=== PATIENT | female | born 1955 | race Caucasian/White ===

== ENCOUNTER → 2021-08-29 12:45 | Outpatient (BNVA) | payer OTHER, SELFPAY | PROVIDERS: Visit Provider Nurse Practitioner Family | DX: M25.561 Pain in right knee (principal) | CPT/HCPCS: 73562 ==

== ENCOUNTER 2021-10-05 07:01 | Outpatient (CLI) | payer OTHER, SELFPAY ==
--- NOTE | 2021-10-05 07:15 | MR_ITS ---
WS: [id number] MRI RIGHT KNEE NONCONTRAST TECHNIQUE: Axial PD, coronal PD fat sat, coronal PD, sagittal PD, and sagittal PD fat-sat images obta ined. CLINICAL INFORMATION: continued knee pain after torque injury 4 weeks prior COMPARISON: None. FINDINGS: Distal quadriceps and patella tendons are intact. Hypertrophic patella. Partial intrasubstance tear i nvolving the distal ACL at the tibial insertion. Associated T2 signal abnormality. Intrasubstance mike ma. ACL otherwise appears intact. Normal PCL. Prepatellar soft tissue edema. Moderate suprapatellar effusion. Patella tendon tendinosis at the distal insertion. Advanced tricompartmental arthritis. Small amount of subchondral cystic change and edema involving th e medial tibial plateau and tibial spines. Mild chondromalacia patella. Normal medial and lateral patellar retinaculum. High-grade partial tear at the LCL proximal origin at the femoral condyle. LCL is otherwise grossly intact. Chronic thinning of the medial and lateral meniscus. Chronic intrasubstance signal abnormality involving the posterior horn medial meniscus. Chronic peripheral extrusion of the medial meniscus. Small radial tear involvi ng the anterior horn lateral meniscus. Edema in Hoffa's fat pad. Popliteus tendon appears normal. MR/MR knee RT wo con* [id number] IMPRESSION: 1. Partial intrasubstance tear involving the distal ACL at the tibial insertio n. ACL is grossly otherwise intact. Normal PCL. 2. Advanced tricompartmental arthritis subchondral cystic change involving the medial tibial plateau and tibial spines. 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 3. Chronic thinning of the medial and lateral meniscus. 4. Radial tear involving the anterior horn lateral meniscus. 5. Moderate suprapatellar effusion. Prepatellar soft tissue edema. 6. High-grade intrasubstance ligamentous tear at the LCL origin femoral condyl e. LCL otherwise appears intact. Normal MCL. 7. Mild chondral malacia patella 8. Tendinosis of the patella tendon insertion. Outbridge grading:
== END 2021-10-05 07:02 | disposition home or self-care (01) ==
PROVIDERS: Visit Provider Orthopaedic Surgery
DX: S83.8X1A Sprain of other specified parts of right knee, initial encounter (principal); S83.511A Sprain of anterior cruciate ligament of right knee, initial encounter; X58.XXXA Exposure to other specified factors, initial encounter; M13.861 Other specified arthritis, right knee; S83.281A Other tear of lateral meniscus, current injury, right knee, initial encounter; M25.461 Effusion, right knee; R60.0 Localized edema; M22.41 Chondromalacia patellae, right knee
CPT/HCPCS: 73721

== ENCOUNTER 2021-10-20 11:59 | Day surgery (SDC) | payer OTHER, SELFPAY ==
[2021-10-19 14:47] VITALS: BMI 33.2
[2021-10-20] VITALS (8 sets, daily range): BP systolic 111–150; BP diastolic 71–91; PULSE 68–85; RESP 14–18; TEMP 36.3–36.8; O2SAT 96–99
--- NOTE | 2021-10-20 12:36 | ANES.PREANE2 ---
Pre-Anesthetic Assessment Height/Weight: Height 1.7 m Weight 96.162 kg Temp Pulse Resp BP Pulse Ox 97.3 F L 81 16 150/91 97 10/20/21 12:23 10/20/21 12:23 10/20/21 12:23 10/20/21 12:23 10/20/21 12:23 Preop Diagnosis: meniscal tear right knee Operation Date: 10/20/21 14:00 Proposed Procedures p Right knee scope with root repair 42721/[id number]/m94.261(Right) - Anshul Muir MD Familial anesthetic complications: Patient's brother had reaction. I spoke with patient's brother on the phone. He had bradycardia pre op, after start of anesthesia his blood pressure dropped, and he became cold he was never told he had an allergy to anesthesia or to warn family of anesthetic reactions. Patient's brother has had other surgeries w/o complications. Patient has hx of PONV Was Beta Nneka taken within 24 hours: N/A Was Clonidine taken within 24 hours: N/A Last intake: Intake Last Liquid Date 10/19/21 Last Liquid Time 18:00 Last Solid Date 10/19/21 Last Solid Time 18:00 Social No alcohol and No tobacco Exam alert, oriented x 3, clear to auscultation bilaterally and regular rate & rhythm Airway Submandibular: within normal limits Cervical ROM: within normal limits Mallampati: Class II Dentition: chipped Pulmonary None reported CV/HEM Hypertension Hepatic None reported GI Gastroesophageal Reflux Disease (Well controlled ) Musc/skel Osteoarthritis/DJD Neuropsych None reported Anesthetic Plan ASA status: 2 Anesthesia: Anesthesia Evaluation and General Other: We discussed risk and benefits of general anesthesia including PONV, sore throat (sometimes severe), corneal abrasion, positioning and peripheral nerve injuries, life threatening allergic reaction, post operative ICU admission requiring prolonged intubation, stroke, heart attack, , and rare incidences of recall. Patient consents to proceed with general anesthesia. Plan pre op scopalamine and diphenhydramine for PONV PPx in addition to dexamethasone and ondansetron Risk of > 500 ml blood loss (7ml/kg in children): No Medications/Allergies Home Medications Medication Instructions Recorded Confirmed Last Taken Type amlodipine 5 mg tablet 5 mg PO DAILY 08/29/21 10/19/21 Unknown History atorvastatin 10 mg tablet 10 mg PO DAILY 08/29/21 10/19/21 Unknown History fluoxetine 20 mg tablet 20 mg PO DAILY 08/29/21 10/19/21 Unknown History losartan 100 1 tab PO DAILY 08/29/21 10/19/21 Unknown History mg-hydrochlorothiazide 12.5 mg tablet pantoprazole 40 mg tablet,delayed 40 mg PO DAILY 08/29/21 10/19/21 Unknown History release multivitamin (Multiple Vitamins) 1 tab PO DAILY 09/01/21 10/19/21 Unknown History Allergies Allergy/AdvReac Type Severity Reaction Status Date / Time codeine Allergy ALGY-Anaphy Verified 09/01/21 08:05 laxis Iodinated Contrast Media Allergy ALGY-Anaphy Verified 09/01/21 08:05 laxis [facility] Anesthesia Social History Smoking and tobacco status: never smoked Alcohol intake: never Data Anesthesia Cardiac Studies: No Data to Display
[2021-10-20] MEDS: sodium chloride 0.9% 1,000 ML 30 ML IV (12:40)
[2021-10-20] MEDS: scopolamine 1.5 Patch 1 PATCH TRANSDERMA (13:01)
[2021-10-20] MEDS: diphenhydrAMINE 50 mg/mL SDV 1mL 12.5 MG IVP (13:05)
--- NOTE | 2021-10-20 13:06 | PC.NURSE ---
Family history anesthesia reaction: When asked patient question regarding malignant hyperthermia, patient stated she was not sure what it was called, but her brother did have severe reaction to anesthesia previously. Patient at first stated that after given dose of anesthesia, she thought her brother experienced low blood pressure, low heart rate, and a fever. However, she could not remember the details exactly. This nurse informed Dr. Cervantes of possible reaction. Dr. Cervantes then came to patient to investigate further, patient then called her brother to find out exactly the type of reaction that occurred. Dr. Cervantes did speak with him on the phone. He expressed that he had a drop in blood pressure and temperature and always has bradycardia.
--- NOTE | 2021-10-20 13:39 | W.PM.OPSUD ---
Surgery/Procedure H&P Update DATE OF PROCEDURE: October 20, 2021 DATE H&P PERFORMED: 10/11/21 H&P UPDATE INFORMATION: I have reviewed H&P completed within last 30 days PREOP DIAGNOSIS: meniscal tear right knee PLANNED PROCEDURE: Operation Date: 10/20/21 14:00 Proposed Procedures p Right knee scope with root repair 37666/[id number]/m94.261(Right) - Anshul Muir MD
[2021-10-20] MEDS: morphine 4 mg/mL SDV 1 mL 8 MG XX (14:29)
--- NOTE | 2021-10-20 16:14 | P.OP_ITS ---
Operative Report Date of procedure: October 20, 2021 Pre-op diagnosis: Preop Diagnosis meniscal tear right knee Post-op diagnosis: same Post-op diagnosis: Meniscal root tear right knee, chondromalacia medial femoral condyle Procedure done: Arthroscopic repair right medial meniscal root Implants: [employer] Endobutton x2 Pathology: none sent Surgeon: Anshul Muir Anesthesia: General Estimated blood loss (mL): 20 Tourniquet time (min): 63 Complications: None Findings: The patient had a complete avulsion of her meniscal root posteriorly from the intercondylar eminence. She had fibrillation fraying and thinning of the cartilage over the medial femoral condyle thought involved perhaps 25% of the cartilaginous thickness. No point was exposed subchondral bone identified Condition: stable Disposition: PACU Brief History: Ms. Andrade is a 66-year-old female who developed acute pain and a pop in her knee after stepping off a sidewalk in August. She had persistent pain and swelling. An MRI was obtained showing some early degenerative changes the medial compartment but also a suspected meniscal root tear. She was taken to the operating room for arthroscopic evaluation and joint and possible root repair Procedure: Lexi was taken to the operating room and given a general anesthesia. She was given 2 g of Ancef. She was prepped and draped in the supine position with a tourniquet on the her knee. The kneewas infiltrated with 30 cc of quarter percent Marcaine with 8 mg of morphine. A timeout was performed. The knee was entered through a standard inferior medial and inferior lateral portal. The medial portal was placed close to the patellar tendon to allow better potential access to the meniscal root. The diagnostic portion arthroscopy was performed. The lateral compartment was essentially pristine with no meniscal tearing or chondromalacia. she had minimal softening and small fissures of her central patella but no significant patellar cartilage loss and no trochlear cartilage loss. Her medial compartment was remarkable for fibrillation and softening over the entirety of the weightbearing aspect the medial femoral condyle but no point was exposed subchondral bone identified. Light debridement of the medial femoral condyle was accomplished with the [employer]hew Werewolf probe. Her meniscus was probed and the posterior root tear noted. As the patient was asymptomatic prior to the August injury and chondroma lacia was estimated to be a high-grade 2 a decision was made to proceed with root repair. Small curette was used to debride the meniscal root attachment site Initially working through the medial portal a [employer]hew FirstPass mini suture passer was used to shuttle a looped Ultrabraid through the torn end of the meniscal root. The loop then was then passed back out through the medial portal and secured control in the end of the meniscus with a luggage tag type stitch. Traction could then be placed on this allowing better control of the root and a second suture was passed in identical fashion. Working through the medial portal the root repair guide was centered at the meniscal root attachment just medial to the tibial spine. A's small 2cm anterior medial incision was made for the cannula. The root repair cannula was passed into the joint. Through this cannula a looped nylon suture was passed. That suture was brought through the medial portal and used to shuttle one of the suture pairs of through the tunnel. It was thought that repair will be more stable if the second suture could be brought through a more posterior and lateral tunnel. A second more anterior lateral incision was made for the second tunnel. And a guide was used to pass a second cannula into a more lateral and posterior position. The guide was used to pass a second guidepin from the more lateral tibia exiting more lateral against the medial aspect of the tibial spine and in identical fashion the second suture pair passed through the suture tunnel. Each suture was tied over a Endobutton securing the meniscal root over the tunnels and debrided root footprint attachment site. The scope was reintroduced into the joint and the repair probed and found to be stable. The knee was irrigated with saline. The to tunnel incisions over the medial and lateral tibia were closed with deep 2-0 Vicryl and interrupted 3-0 Prolene. Arthroscopy portalswere closed with 3-0 Prolene.
[2021-10-20] MEDS: ondansetron 2 mg/ML SDV 2 mL 4 MG IVP (16:28)
[2021-10-20] MEDS: ketorolac 30 mg/mL INJ 15 MG IVP (16:43)
[2021-10-20] MEDS: HYDROcodone-acetaminophen 7.5-325 mg Tablet 1 TAB PO (16:50)
--- NOTE | 2021-10-20 16:54 | ANE.PACU2 ---
Inpatient post-anesthesia follow up: Airway intact: Yes Vital signs: Temperature 97.3 F Pulse Rate 85 Respiratory Rate 18 Blood Pressure 117/80 Pulse Oximetry 96 Oxygen Delivery Me thod Room Air Oxygen Flow Rate 6 Fraction of Inspir ed Oxygen Hydration adequate: Yes Nausea and vomiting: No Pain level: 5 Mental status: Baseline
== END 2021-10-20 17:40 | disposition home or self-care (01) ==
PROVIDERS: Visit Provider Orthopaedic Surgery
PROC: (CPT 29870; principal; 2021-10-20 14:00)
DX: S83.241A Other tear of medial meniscus, current injury, right knee, initial encounter (principal); W19.XXXA Unspecified fall, initial encounter; K21.9 Gastro-esophageal reflux disease without esophagitis; M19.90 Unspecified osteoarthritis, unspecified site
CPT/HCPCS: 29881; J0690; J1200; J1885; J2270; J2370; J2405; J2704; J3010; J3490; J7030

== ENCOUNTER 2021-11-04 06:00 | Outpatient (RCR) | payer OTHER, SELFPAY | END 2021-11-22 23:59 | disposition home or self-care (01) | LOC: TPT 06:00 | PROVIDERS: Referring Provider Orthopaedic Surgery; Visit Provider Orthopaedic Surgery | DX: S83.8X1D Sprain of other specified parts of right knee, subsequent encounter (principal); X58.XXXD Exposure to other specified factors, subsequent encounter | CPT/HCPCS: 97032; 97110; 97140; 97163 ==

== ENCOUNTER 2021-11-23 06:00 | Outpatient (RCR) | payer OTHER, SELFPAY | END 2021-12-22 23:59 | disposition home or self-care (01) | LOC: TPT 06:00 | PROVIDERS: Referring Provider Orthopaedic Surgery; Visit Provider Orthopaedic Surgery | DX: Z47.89 Encounter for other orthopedic aftercare (principal); Z98.890 Other specified postprocedural states | CPT/HCPCS: 97032; 97110; 97116 ==

== ENCOUNTER 2021-11-27 17:23 | Emergency (ER) | payer OTHER, SELFPAY ==
[2021-11-27 17:34] VITALS: BP 138/83; PULSE 89; RESP 16; TEMP 37; O2SAT 96; BMI 32.2
--- NOTE | 2021-11-27 17:54 | ED_ITS ---
HPI - General Adult General: Chief complaint: Extremity Injury, Lower Stated complaint: Post Surg, R Leg, Turning red, Toes blue, Pain Time Seen by Provider: 11/27/21 17:42 History of Present Illness: Patient is a 66-year-old female who recently underwent right-sided hip hip surgery presenting to the emergency room with complaints of 2 days of right-sided leg swelling. Patient tells me she has been immoblized in bed at home. Patient denies any chest pain, short of breath, palpitation, and lightheadedness. Patient says she has been having progressively swelling and pain without any trauma or injuries. She denies any fever or chills, cough, runny nose, sore throat, fever or chill. Patient is not on anticoagulation Onset:2 days ago Duration:2 days Location:home Severity:moderate Associated symptoms: Deny chest pain, dyspnea, nausea, rash, palpitations or vomiting Review of Systems Const: Denies: fever(s) or chills Eyes: Denies: change in vision ENMT: Denies: mouth pain Card: Denies: chest pain or palpitations Resp: Denies: dyspnea or non-productive cough GI: Denies: abdominal pain, nausea, vomiting or diarrhea : Denies: dysuria Musc: Reports: extremity pain (+R leg pain and swelling) Skin/Breast: Denies: rash or new lesions Neuro: Denies: weakness in extremities Psych: Reports: other (Normal mood) Jamar/Lymph: Denies: easy bruising PFSH ED PFSH: Surgical History Post-operative state Social History Smoking and tobacco status: never smoked Alcohol intake: never Physical Exam Const: COMMON NORMALS: alert HENMT: COMMON NORMALS: atraumatic HEAD & SCALP: atraumatic MOUTH: moist mucous membranes not abnormal Eye: COMMON NORMALS: EOMs intact bilaterally and conjunctivae normal CONJUNCTIVA: Yes conjunctivae normal Neck/C-Spine: COMMON NORMALS: full ROM and supple Resp: COMMON NORMALS: normal respiratory effort and clear to auscultation bilaterally AUSCULTATION: clear to auscultation bilaterally Cardio: COMMON NORMALS: regular rate RATE: regular rate GI: COMMON NORMALS: Soft to palpation and non-tender PALPATION: Yes Soft to palpation Extremity: COMMON NORMALS: full ROM NARRATIVE EXTREMITY EXAM: +R leg swelling, + mild right thigh and right tib/fib compartment tightness, 3+ RLE edema, +R tib-fib/thigh tenderness to palpation, 2+ radial pulses in the right lower extremity, cap refill 3 seconds Neuro: SENSORIUM/ORIENTATION: Yes alert MOTOR EXAM: No Abnormal motor strength present and Other motor observations present (no focal motor deficits) Psych: COMMON NORMALS: speech normal SPEECH: Yes normal speech MOOD & AFFECT: Yes euthymic mood Course Vital Signs: Vital signs: Vital Signs Temperature 97.9 F 11/27/21 18:03 Pulse Rate 86 11/27/21 18:03 Respiratory Rate 18 11/27/21 18:03 Blood Pressure 136/88 11/27/21 18:03 Pulse Oximetry 96 11/27/21 18:03 MDM - General Adult Medical Decision Making 66-year-old female with a history of recent hip surgery currently immobilized in bed presenting to the emergency room with 2 days of progressive right leg swelling and pain. On physical exam, patient has 3+ edema of the right lower extremity, mild tight compartment of the thigh and tib-fib and cap refill of 3 seconds. Neurovascular exam intact. Ultrasound showed extensive thrombosis of the right femoral vein. Discussed case with radiologist who thinks that there may be propagation of thrombus into the iliac vein system. Radiology recommend CT venogram or MR venogram and in case patient has a iliocaval DVT, they may be amenable to mechanical thrombectomy. Patient has an anaphylactic reaction to iodine contrast. I have discussed case with Shea from who tells me that they cannot perform MR venogram of the abdomen pelvis. Patient received 1mg/kg of lovenox in our ED. Case was discussed with Dr. Fontenot at [facility] who agreed with the transfer [facility] for MR venogram for evaluation of possible iliac and iliocaval DVT/ DVT in transit. Disposition: Transfer to outside hospital Lab Data Radiology Impressions Venous Duplex 11/27/21 18:12 IMPRESSION: Right lower extremity femoral vein deep venous system thrombosis. Proximal propagation of thrombus into the iliac vein system cannot be excluded. ADDENDUM: 11/27/211936 THIS REPORT CONTAINS FINDINGS THAT MAY BE CRITICAL TO PATIENT CARE. The findings were verbally communicated via telephone conference with REJI KLINE at 7:35 PM CDT on 11/27/2021. The findings were acknowledged and understood. Imaging Data Other Imaging: Radiologist's impression: [address] [place] [address] Ultrasound Report Signed with Radha Patient: Lexi Andrade Unit #: [id number] : 1955 Age/Sex: 66 / F ADM Date: 11/27/21 Loc: ER Room/Bed: Attending Dr: Ordering Provider/Ordering MD: Reji Kline MD Date of Service: 11/27/21 Procedure(s): [place] [address] Accession Number(s): [id number] Report Number: [id number] ADDENDUM US/[place] [id number] THIS REPORT CONTAINS FINDINGS THAT MAY BE CRITICAL TO PATIENT CARE. The findings were verbally communicated via telephone conference with REJI KLINE at 7:35 PM CDT on 11/27/2021. The findings were acknowledged and understood. ? Addendum Dictated By: ?Max Reddy Addendum Signed By: ?Max Reddy Signed Date/Time: 11/27/211936 Addendum Cosigned By: ? PROCEDURE INFORMATION: Exam: US Duplex Right Lower Extremity Veins, Limited Exam date and time: 11/27/2021 6:30 PM Age: 66 years old Clinical indication: Pain; Edema, localized and swelling (edema) of limb; Lower extremity, right; Leg, upper; Additional info: Leg swelling, recent surgery TECHNIQUE: Imaging protocol: Real-time Duplex ultrasound of the Right Lower Extremity with 2-D mccray scale, color Doppler flow and spectral waveform analysis with image documentation. Limited exam was focused on the right lower extremity veins. COMPARISON: MR knee RT wo con* [id number] 10/05/2021 7:33 AM FINDINGS: Right deep veins: Occlusive thrombus in the right common femoral vein. Right superficial femoral vein throughout thigh demonstrates occlusive thrombus. Right popliteal vein is patent. Calf veins are patent. Right superficial veins: Occlusive thrombus in the right saphenous femoral junction. Soft tissues: Soft tissue edema. US/[place] [id number] IMPRESSION: Right lower extremity femoral vein deep venous system thrombosis.? Proximal propagation of thrombus into the iliac vein system cannot be excluded. ? 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
[2021-11-27 18:03] VITALS: BP 136/88; PULSE 86; RESP 18; TEMP 36.6; O2SAT 96
--- NOTE | 2021-11-27 18:12 | USR_ITS ---
PROCEDURE INFORMATION: Exam: US Duplex Right Lower Extremity Veins, Limited Exam date and time: 11/27/2021 6:30 PM Age: 66 years old Clinical indication: Pain; Edema, localized and swelling (edema) of limb; Lower extremity, right; Leg, upper; Additional info: Leg swelling, recent surgery TECHNIQUE: Imaging protocol: Real-time Duplex ultrasound of the Right Lower Extremity with 2-D mccray scale, color Doppler flow and spectral waveform analysis with image documentation. Limited exam was focused on the right lower extremity veins. COMPARISON: MR knee RT wo con* [id number] 10/05/2021 7:33 AM FINDINGS: Right deep veins: Occlusive thrombus in the right common femoral vein. Right superficial femoral vein throughout thigh demonstrates occlusive thrombus. Right popliteal vein is patent. Calf veins are patent. Right superficial veins: Occlusive thrombus in the right saphenous femoral junction. Soft tissues: Soft tissue edema. US/[place] [id number] IMPRESSION: Right lower extremity femoral vein deep venous system thrombosis. Proximal propagation of thrombus into the iliac vein system cannot be excluded.
[2021-11-27 19:45] VITALS: BP 134/80; PULSE 83; RESP 17; O2SAT 97
[2021-11-27 20:45] VITALS: BP 119/82; PULSE 85; RESP 16; O2SAT 98
[2021-11-27 20:55] LABS: Basophils # 0.1 10^3/uL (0.0-0.1); Basophils % 0.4 %; Eosinophils # 0.2 10^3/uL (0.0-0.8); Eosinophils % 1.1 %; Hemoglobin 13.6 g/dL (11.5-15.3); Lymphocytes # 2.7 10^3/uL (0.8-4.8); Lymphocytes % 20.2 %; Mean Corpuscular HGB Conc 32.4 g/dL (30.0-36.0); Mean Corpuscular Hemoglobin 29.1 pg (28.0-34.0); Mean Corpuscular Volume 89.9 fl (81-99); Mean Platelet Volume 9.6 fL (7.4-10.4); Monocytes # 1.1 10^3/uL (0.2-0.9); Monocytes % 8.1 %; Neutrophils # 9.36 10^3/uL (1.8-7.7); Neutrophils % 69.8 %; Nucleated Red Blood Cells % 0 %; Platelet Count 276 10^3/cmm (130-400); Red Blood Count 4.67 10^6/uL (4.1-5.3); Red Cell Distribution Width 13.4 % (12.1-15.1); White Blood Count 13.4 10^3/uL (4.0-10.0)
[2021-11-27] MEDS: enoxaparin 100 mg/mL Syringe 90 MG SUBCUT (20:55)
[2021-11-27 21:12] LABS: Anion Gap 15.3 (5-19); Blood Urea Nitrogen 22 mg/dL (8-23); Calcium 9.4 mg/dL (8.5-10.5); Carbon Dioxide 26 mmol/L (22-29); Chloride 101 mmol/L (98-107); Glomerular Filtration Rate 55.8 mL/min (90-130); Glucose 114 mg/dL (65-115); Osmolality Calculated 292 mOsm/kg (285-295); Potassium 3.3 mmol/L (3.5-5.1); Sodium 139 mmol/L (136-145)
[2021-11-27 21:13] LABS: Creatinine Clr Calc Pharmacy 66.6959
[2021-11-27 21:36] VITALS: BP 119/82; PULSE 85; RESP 16; O2SAT 98
== END 2021-11-27 21:39 ==
PROVIDERS: Emergency Provider Emergency Medicine
DX: I82.411 Acute embolism and thrombosis of right femoral vein (principal); R60.9 Edema, unspecified; Z98.890 Other specified postprocedural states
CPT/HCPCS: 80048; 85025; 93971; 96372; 99283; 99285; J1650

== ENCOUNTER 2021-12-23 06:00 | Outpatient (RCR) | payer OTHER, SELFPAY | END 2022-01-22 23:59 | disposition home or self-care (01) | LOC: TPT 06:00 | PROVIDERS: Referring Provider Orthopaedic Surgery; Visit Provider Orthopaedic Surgery | DX: S83.241D Other tear of medial meniscus, current injury, right knee, subsequent encounter (principal); X58.XXXD Exposure to other specified factors, subsequent encounter | CPT/HCPCS: 97110; 97164 ==

== ENCOUNTER → 2022-07-18 13:43 | Outpatient (BNVA) | payer MEDICARE, OTHER, SELFPAY | PROVIDERS: PCP Family Medicine; Visit Provider Podiatrist Foot & Ankle Surgery | DX: M79.671 Pain in right foot (principal); M79.672 Pain in left foot; M72.2 Plantar fascial fibromatosis | CPT/HCPCS: 20550; 73630; 99204; J1100; J3301 ==